=== PATIENT | male | born 1990 | race Hispanic/Latino ===

== ENCOUNTER 2024-05-18 21:09 | Emergency (ER) | payer SELFPAY ==
[~2024-05-18] VITALS: Ht 180.3 cm; Wt 96.2 kg
[2024-05-18] MEDS: LIDOCAINE HCL 1% 20 ML VIAL INJ ONE (23:10)
[2024-05-18] MEDS: teTANUS/diphthERIA TOXOID [ADULT] 0.5 ML VIAL IM ONE (23:10)
[2024-05-18] MEDS ORDERED: AMOX1TAB16 PO (23:46)
--- NOTE | 2024-05-18 23:46 | ERN ---
General Chief Complaint: Laceration/Avulsion Stated Complaint: OPEN WOUND ON FINGER Time Seen by MD: 22:01 Time Seen by Midlevel: 22:01 Source: patient History of Present Illness Initial Comments 33-year-old male who presents to the emergency department due to a finger laceration to the left middle finger. Patient reports injury happened at work when a metal crushed his finger causing the laceration. Patient denies any pain, limited range of motion, numbness or further associated symptoms. Patient's last tetanus is unknown. Denies significant past medical history. Allergies: Coded Allergies: No Known Allergies (Unverified Allergy, Unknown, 05/18/24) Home Meds Active Scripts Amoxicillin/Potassium Clav (Amox Tr-K Clv 875-125 mg Tab) 875 Mg-125 Mg Tablet, 1 EACH PO BID for 7 Days, #14 TAB 0 Refills Prov:DEDRICK ALMAGUER 05/18/24 Past Medical History Past Medical History: No Pertinent History Past Surgical History: Other ROS Dictation Constitutional: Negative for fever,chills, and weight loss Eyes: Negative for injury, pain,redness, and discharge ENT: Negative for injury,pain or swelling Cardiovascular: Negative for chest pain, palpitations, and edema Respiratory: Negative for shortness of breath, cough, and wheezing, Abdomen/GI: Negative for abdominal pain, nausea, vomiting, diarrhea, and constipation Back: Negative for injury and pain : Negative for painful urination, bleeding or discharge MS/Extremity: Negative for injury and deformity Skin: Positive for laceration to the left hand middle finger Negative for rash, and discoloration Neuro: Negative for headache, weakness, numbness, tingling, and seizure Psych: Negative for suicide ideation, homicidal ideation, and hallucinations Physical Exam Physical Exam Dictation General: awake, alert, no acute distress Head/Face: Normocephalic, atraumatic Eyes: PERRL, EOMI, normal conjuctiva Neck: Supple, normal range of motion Cardiovascular: RRR, normal S1/S2 Respiratory: no respiratory distress Skin: Warm, dry, normal turgor, no rash. 4 cm laceration to the dorsal aspect of the third digit left hand MS/Extremity: Pulses equal, no cyanosis, neurovascular intact, FROM. Left hand normal range of motion, normal sensation and range of motion to all five digits Neuro: COAx4, GCS 15, strength 5/5, CN 2-12 intact, normal cerebellar exam, normal gait, Psych: Normal behavior, mood, and affect normal MDM MDM: Differential diagnosis: Laceration, abrasion, foreign object in laceration Rationale: 33-year-old male who presents to the emergency department due to a finger laceration to the left middle finger. Patient reports injury happened at work when a metal crushed his finger causing the laceration. Patient denies any pain, limited range of motion, numbness or further associated symptoms. Patient's last tetanus is unknown. Denies significant past medical history. Per physical examination patient has 4 cm laceration to the dorsal aspect of the 3rd left digit, full range of motion sensation, neurovascularly intact to the left 3rd digit, no deformities, no further injuries noted. Laceration repaired was performed in the ED with no complications. Tetanus vaccination was administered. Antibiotics prescribed for outpatient treatment. Patient was educated on findings and diagnosis. Advised to follow up with PCP. Return to the emergency department if any worsening symptoms. Patient verbalized understanding. Patient stable for discharge. There are no social concerns with this patient. I independently interpreted the test that were performed, results were reviewed by me and considered findings on radiology if ordered. Medical management and examination interpretation discussions were had by me with other qualified healthcare professionals as indicated for the patient's care. ED Course Orders Procedure Category Date Status Time Tetanus,Diphtheria PHA 05/18/24 Complete Tox [Adult] (Diphther 22:30 Lidocaine Hcl 1% 20ml PHA 05/18/24 Complete Vial (Lidocaine Hc 22:30 Current Medications Medications (Trade) Dose Ordered Sig/Gabrielle Route PRN Reason Start Time Stop Time Status Last Admin Dose Admin Lidocaine HCl (Lidocaine HCl 1% 20ml Vial) 10 ml ONCE ONCE INJ 05/18/24 22:30 05/18/24 22:31 DC 05/18/24 23:10 Tetanus/ Diphtheria Toxoids Adsorbed (DiphthERIA-teTANUS TOXOID [ADULT]/ DECAVAC) 0.5 ml ONCE ONCE IM 05/18/24 22:30 05/18/24 22:31 DC 05/18/24 23:10 Vital Signs Date Time Temp Pulse Resp B/P (MAP) Pulse Ox O2 Delivery O2 Flow Rate FiO2 05/18/24 23:54 98.6 66 20 126/87 100 Room Air* 0 21 05/18/24 22:04 98.2 72 20 159/94 98 Room Air Procedure Dictation Laceration repair performed 1% lidocaine 6 mL used 3-0 Prolene, six stitches Wound cleansed, no debris or foreign objects noted within the laceration. Neurovascularly intact, full range of motion of the left 3rd digit. No complications Patient consent Procedure duration 20 minutes Performed by self DX & DISP Disposition: Discharge Departure Impression: Primary Impression: Finger laceration Condition: Stable Scripts Amoxicillin/Potassium Clav (Amox Tr-K Clv 875-125 mg Tab) 875 Mg-125 Mg Tablet 1 EACH PO BID for 7 Days, #14 TAB 0 Refills Prov: DEDRICK ALMAGUER 05/18/24 Additional Instructions: Discharge home. Rest. Follow up with primary care DrGavin in 24 hours. Return to the ER for any acute changes or worsening symptoms. If any medications were prescribed take as directed. Okay to continue home medications unless otherwise discussed during your visit in the emergency room today. Patient was also advised to follow-up with primary care physician in 1 to 2 days for continued monitoring. Referrals: SELF,REFERRAL (PCP) I performed the substantive portion of the visit. I have reviewed and personally made and approve the management plan that is documented in the notes by myself or the [facility]. I acknowledge full responsibility for the patient's management plan. DEDRICK ALMAGUER May 18, 2024 23:46
[2024-05-18 23:54] VITALS: BP 126/87; PULSE 66; RESP 20; TEMP 98.6; O2SAT 100
--- NOTE | 2024-05-18 23:57 | NUR ---
ED PA PLACED 6 STITCHES TO THE LEFT DORSAL ASPECT OF THIRD DIGIT PATIENT TOLERATED WELL
== END 2024-05-18 23:59 | disposition home or self-care (01) ==
LOC: EDH 21:09
DX: S61.213A Laceration without foreign body of left middle finger without damage to nail, initial encounter (principal); W23.0XXA Caught, crushed, jammed, or pinched between moving objects, initial encounter; Y93.89 Activity, other specified; Y92.89 Other specified places as the place of occurrence of the external cause; Y99.8 Other external cause status
CPT/HCPCS: 12002; 90471; 90714; 99283